=== PATIENT | female | born 1965 | race Caucasian/White ===

== ENCOUNTER 2019-07-07 08:43 | Day surgery (SDC) | payer OTHER ==
[2019-07-05 16:36] LABS: BASOPHILS # (AUTO) 0.1 X10'3 (0-0.2); BASOPHILS % (AUTO) 0.8 % (0-1); EOSINOPHILS # (AUTO) 0.2 X10'3 (0-0.9); EOSINOPHILS % (AUTO) 3.2 % (0-6); LYMPHOCYTES # (AUTO) 2.2 X10'3 (1.1-4.8); LYMPHOCYTES % (AUTO) 30.6 % (21-51); MEAN CORPUSCULAR HEMOGLOBIN 30.7 PG (27.0-31.0); MEAN CORPUSCULAR HGB CONC 33.2 g/dL (33.0-36.5); MEAN CORPUSCULAR VOLUME 92.4 FL (78-98); MEAN PLATELET VOLUME 8.5 FL (7.4-10.4); MONOCYTES # (AUTO) 0.6 X10'3 (0-0.9); MONOCYTES % (AUTO) 8.3 % (2-12); NEUTROPHILS # (AUTO) 4.1 X10'3 (1.8-7.7); NEUTROPHILS % (AUTO) 57.1 % (42-75); PRE OP HEMATOCRIT 39.7 % (35.0-45.0); PRE OP HEMOGLOBIN 13.2 g/dL (12.0-16.0); PRE OP PLATELET COUNT 235 X10'3 (140-440); RED CELL DISTRIBUTION WIDTH 14.4 % (11.5-14.5)
[2019-07-05 16:43] LABS: CLARITY,URINE CLEAR (Clear); COLOR,URINE YELLOW (Yellow); GLUCOSE, URINE NEGATIVE (Neg); KETONES,URINE NEGATIVE (Neg); LEUKOCYTE ESTERASE ,URINE NEGATIVE (Neg); NITRITES, URINE NEGATIVE (Neg); OCCULT BLOOD,URINE MODERATE (Neg); PROTEIN,URINE NEGATIVE (Neg); UROBILINOGEN,URINE 0.2 E.U/dL (0.2-1.0)
[2019-07-05 16:46] LABS: ALBUMIN 3.8 G/DL (3.4-5.0); ALBUMIN/GLOBULIN RATIO 1.1 (1.1-1.5); ALKALINE PHOSPHATASE 113 IU/L (46-116); BLOOD UREA NITROGEN 15 MG/DL (7-18); BUN/CREATININE RATIO 22.4 (6.6-38.0); CALCIUM 10.1 MG/DL (8.5-10.1); CHLORIDE 107 MMOL/L (99-107); CREATININE 0.67 MG/DL (0.40-0.90); PRE OP ALT 16 U/L (30-65); PRE OP ANION GAP 4 (8-16); PRE OP AST 20 U/L (10-37); PRE OP BILIRUB, TOTAL 0.2 MG/DL (0.0-1.0); PRE OP GLUCOSE 88 MG/DL (70-104); PRE OP POTASSIUM 3.7 MMOL/L (3.4-5.1); PRE OP SODIUM 143 MMOL/L (135-145); TOTAL CARBON DIOXIDE 32.3 MMOL/L (24-32); TOTAL PROTEIN 7.3 G/DL (6.4-8.2); eGFR > 90 ML/MIN
[2019-07-05 16:50] LABS: BACTERIA,URINE NONE SEEN /HPF (Neg); SQUAMOUS EPITHELIAL CELL,UR FEW /LPF (FEW); UA COLLECTION TYPE CLN CATCH MIDSTREAM; WBC,URINE NONE SEEN /HPF (0-4)
[~2019-07-07] VITALS: Ht 167.6 cm; Wt 80.0 kg
[2019-07-07] VITALS (11 sets, daily range): BP systolic 112–159; BP diastolic 76–99
[~2019-07-07 08:43] MED LIST: ACET-1025 PO; ATEN50TA PO; DOCUMENT DATE & TIME OF BETA-BLOCKER PO ONE; PARO20TA6 PO; cefazolin/dext.iso 2gm/50ml 50 ML IV ONE; famotidine 20mg tablet PO ONE; ringers solution, lacted 1,000 ML IV SCH
[2019-07-07] MEDS ORDERED: BUPIVAcaine/PF 2.5 mg/ml (0.25%) 30ml vial ONE (13:00)
[2019-07-07] MEDS ORDERED: ceFAZolin 1000mg inj ONE (13:00)
[2019-07-07] MEDS ORDERED: sevoflurane 250ml liquid IH ONE (13:32)
[2019-07-07] MEDS ORDERED: fentaNYL/PF 50MCG/1 ML 2ML syringe ONE (13:40)
[2019-07-07] MEDS ORDERED: midazolam 2 mg/2 ml injection ONE (13:52)
[2019-07-07] MEDS ORDERED: dexamethasone sod phosphate 4mg/ml inj. ONE (14:20)
[2019-07-07] MEDS ORDERED: glycopyrrolate 0.2mg/ml inj ONE (14:20)
[2019-07-07] MEDS ORDERED: neostigmine methylsulfate 1 MG/ML 10ml vial ONE (14:20)
[2019-07-07] MEDS ORDERED: LIDOcaine 2% (20mg/ml) 5ml vial ONE (14:20)
[2019-07-07] MEDS ORDERED: propofol inj 20 ML IV ONE (14:20)
[2019-07-07] MEDS ORDERED: ondansetron/PF 4mg/2ml inj ONE (14:20)
[2019-07-07] MEDS ORDERED: rocuronium 10mg/ml inj IV ONE (14:20)
[2019-07-07] MEDS ORDERED: meperidine/PF 50mg/ml syringe ONE (14:26)
--- NOTE | 2019-07-07 14:33 | NUR ---
Received from OR via [facility], accompanied by Anesthesiologist MAYE and report given by Anesthesiolgist. PATIENT WITH 3 ABDOMINAL DRESSINGS CDI TO ABDOMEN. DENIES PAIN. VSS. 10L MASK ON WITH 100% SATURATIONS. Addendum: 07/07/19 at 1444 by Winston Soliz RN, RN Amended: Links added.
[2019-07-07] MEDS ORDERED: ringers solution, lacted 1,000 ML IV SCH (14:41)
[2019-07-07] MEDS ORDERED: proCHLORperazine 10 MG/2 ml inj IV PRN (14:45)
[2019-07-07] MEDS ORDERED: ondansetron/PF 4mg/2ml inj IV PRN (14:45)
[2019-07-07] MEDS ORDERED: morphine 2 MG/ML inj. syringe IV PRN (14:45)
[2019-07-07] MEDS ORDERED: meperidine/PF 25mg/ml syringe IV PRN ×3 (14:45)
[2019-07-07] MEDS ORDERED: morphine 4 MG/ML inj SYRINge IV PRN (14:45)
--- NOTE | 2019-07-07 16:13 | NUR ---
ALL DC CRITERIA HAS BEEN MET. IV TAKEN OUT WITHOUT COMPLICATIONS. ALL INSTRUCTIONS COVERED AND ALL QUESTIONS ANSWERED. DRESSINGS CDI. OUT VIA WHEELCHAIR TO PERSONAL VEHICLE WHERE PATIENT WAS SECURED IN AND DRIVEN HOME BY FAMILY. SPOUSE PRESENT FOR DC INSTRUCTIONS AND DRESSED PATIENT. ALL DRESSINGS CDI. VSS. PAIN WELL CONTROLLED. Addendum: 07/07/19 at 1615 by Winston Soliz RN, RN Amended: Links added.
== END 2019-07-07 16:13 | disposition home or self-care (01) ==
LOC: PAS 08:43
PROVIDERS: ATTEND Surgery
DX: K41.90 Unilateral femoral hernia, without obstruction or gangrene, not specified as recurrent (principal); F41.9 Anxiety disorder, unspecified; G43.909 Migraine, unspecified, not intractable, without status migrainosus; I10 Essential (primary) hypertension; Z88.2 Allergy status to sulfonamides; Z88.8 Allergy status to other drugs, medicaments and biological substances; Z79.899 Other long term (current) drug therapy
CPT/HCPCS: 36415; 49550; 80053; 81001; 82948; 85025; 93005; C1727; C1781; J0690; J1100; J2001; J2175; J2250; J2270; J2405; J2704; J2710; J3010; J3490; A4215; A4314; A4618; A6258; J7120

== ENCOUNTER 2020-02-24 10:31 | Day surgery (SDC) | payer OTHER ==
[2020-02-17 15:57] LABS: BASOPHILS # (AUTO) 0.1 X10'3 (0-0.2); BASOPHILS % (AUTO) 1.3 % (0-1); EOSINOPHILS # (AUTO) 0.2 X10'3 (0-0.9); EOSINOPHILS % (AUTO) 2.5 % (0-6); LYMPHOCYTES # (AUTO) 1.8 X10'3 (1.1-4.8); LYMPHOCYTES % (AUTO) 29.5 % (21-51); MEAN CORPUSCULAR HEMOGLOBIN 30.4 PG (27.0-31.0); MEAN CORPUSCULAR HGB CONC 32.8 g/dL (33.0-36.5); MEAN CORPUSCULAR VOLUME 92.6 FL (78-98); MEAN PLATELET VOLUME 8.8 FL (7.4-10.4); MONOCYTES # (AUTO) 0.5 X10'3 (0-0.9); MONOCYTES % (AUTO) 8.7 % (2-12); NEUTROPHILS # (AUTO) 3.6 X10'3 (1.8-7.7); PRE OP HEMATOCRIT 40.6 % (35.0-45.0); PRE OP HEMOGLOBIN 13.3 g/dL (12.0-16.0); PRE OP PLATELET COUNT 232 X10'3 (140-440); RED BLOOD COUNT 4.39 X10'6 (4.20-5.60); RED CELL DISTRIBUTION WIDTH 14.2 % (11.5-14.5)
[2020-02-17 16:00] LABS: CLARITY,URINE CLEAR (Clear); COLOR,URINE YELLOW (Yellow); GLUCOSE, URINE NEGATIVE (Neg); KETONES,URINE NEGATIVE (Neg); LEUKOCYTE ESTERASE ,URINE SMALL (Neg); NITRITES, URINE NEGATIVE (Neg); OCCULT BLOOD,URINE MODERATE (Neg); PH,URINE 7.5 (4.8-8.0); PROTEIN,URINE NEGATIVE (Neg); UROBILINOGEN,URINE 0.2 E.U/dL (0.2-1.0)
[2020-02-17 16:08] LABS: UA COLLECTION TYPE CLN CATCH MIDSTREAM
[2020-02-17 16:08] LABS: ALBUMIN 3.7 G/DL (3.4-5.0); ALBUMIN/GLOBULIN RATIO 1.1 (1.1-1.5); ALKALINE PHOSPHATASE 119 IU/L (46-116); BLOOD UREA NITROGEN 14 MG/DL (7-18); BUN/CREATININE RATIO 18.7 (6.6-38.0); CALCIUM 10.5 MG/DL (8.5-10.1); CHLORIDE 108 MMOL/L (99-107); CREATININE 0.75 MG/DL (0.40-0.90); PRE OP ALT 21 U/L (30-65); PRE OP ANION GAP 0 (8-16); PRE OP AST 15 U/L (10-37); PRE OP BILIRUB, TOTAL 0.4 MG/DL (0.0-1.0); PRE OP GLUCOSE 88 MG/DL (70-104); PRE OP POTASSIUM 4.3 MMOL/L (3.4-5.1); PRE OP SODIUM 138 MMOL/L (135-145); TOTAL CARBON DIOXIDE 29.9 MMOL/L (24-32); TOTAL PROTEIN 7.1 G/DL (6.4-8.2); eGFR 80 ML/MIN
[2020-02-17 16:12] LABS: BACTERIA,URINE FEW /HPF (Neg); SQUAMOUS EPITHELIAL CELL,UR FEW /LPF (FEW); WBC,URINE 0-4 /HPF (0-4)
[~2020-02-24] VITALS: Ht 167.6 cm; Wt 81.3 kg
[~2020-02-24 10:31] MED LIST changes: -ACET-1025 PO; +ceFOXitin sod/dextrose 2g/50ml 50 ML IV ONE; -cefazolin/dext.iso 2gm/50ml 50 ML IV ONE; +famotidine 10mg tablet PO ONE; -famotidine 20mg tablet PO ONE
[2020-02-24 11:12] VITALS: BP 139/90
[2020-02-24 11:45] LABS: HCG SERUM QL NEGATIVE
[2020-02-24] MEDS ORDERED: BUPIVAcaine/PF 2.5 mg/ml (0.25%) 30ml vial ONE (13:10)
[2020-02-24] MEDS ORDERED: BUPIVAcaine 0.25% w/Epi /PF 30ml vial ONE (13:10)
[2020-02-24] MEDS ORDERED: midazolam 2 mg/2 ml injection ONE (13:43)
[2020-02-24] MEDS ORDERED: fentaNYL/PF 50MCG/1 ML 2ML syringe ONE (13:43)
[2020-02-24] MEDS ORDERED: propofol inj 20 ML IV ONE (13:44)
[2020-02-24] MEDS ORDERED: LIDOcaine 2% (20mg/ml) 5ml vial ONE (13:45)
[2020-02-24] MEDS ORDERED: ondansetron/PF 4mg/2ml inj ONE (13:53)
[2020-02-24] MEDS ORDERED: rocuronium 10mg/ml inj IV ONE (13:53)
[2020-02-24] MEDS ORDERED: meperidine/PF 25mg/ml syringe ONE (14:52)
[2020-02-24] MEDS ORDERED: ringers solution, lacted 1,000 ML IV SCH (15:10)
[2020-02-24] MEDS ORDERED: ondansetron/PF 4mg/2ml inj IV PRN (15:10)
[2020-02-24] MEDS ORDERED: meperidine/PF 25mg/ml syringe IV PRN ×3 (15:10)
[2020-02-24] MEDS ORDERED: morphine 4 MG/ML inj SYRINge IV PRN (15:10)
[2020-02-24] MEDS ORDERED: morphine 2 MG/ML inj. syringe IV PRN (15:10)
[2020-02-24] MEDS ORDERED: proCHLORperazine 10 MG/2 ml inj IV PRN (15:10)
[2020-02-24] MEDS ORDERED: acetaminophen 1,000mg/100ml IV 100 ML IV ONE (15:39)
[2020-02-24 15:53] VITALS: BP 118/60
--- NOTE | 2020-02-24 15:53 | NUR ---
Received from OR via cayla, accompanied by Anesthesiologist Trip and report given by Anesthesiolgist. VS stable, lap sites x3 open to air CDI, 20G right AC LR 100cc/hr. Mask to 10L sats 99%. Surgeon states he would prefer she voids prior to leaving.
[2020-02-24 16:00] VITALS: BP 116/74
[2020-02-24 16:10] VITALS: BP 109/71
[2020-02-24 16:20] VITALS: BP 113/69
[2020-02-24 16:30] VITALS: BP 110/70
== END 2020-02-24 16:53 | disposition home or self-care (01) ==
LOC: PAS 10:31
PROVIDERS: ATTEND Obstetrics & Gynecology Obstetrics
DX: N83.8 Other noninflammatory disorders of ovary, fallopian tube and broad ligament (principal); D27.1 Benign neoplasm of left ovary; D27.0 Benign neoplasm of right ovary; I10 Essential (primary) hypertension; F41.9 Anxiety disorder, unspecified; F32.9 Major depressive disorder, single episode, unspecified; G43.909 Migraine, unspecified, not intractable, without status migrainosus; E66.9 Obesity, unspecified; Z68.29 Body mass index [BMI] 29.0-29.9, adult; Z87.440 Personal history of urinary (tract) infections; Z88.2 Allergy status to sulfonamides; Z88.8 Allergy status to other drugs, medicaments and biological substances; Z79.899 Other long term (current) drug therapy; Z98.890 Other specified postprocedural states; Z82.49 Family history of ischemic heart disease and other diseases of the circulatory system; Z80.1 Family history of malignant neoplasm of trachea, bronchus and lung; Z20.828 Contact with and (suspected) exposure to other viral communicable diseases
CPT/HCPCS: 36415; 58661; 71046; 80053; 81001; 82948; 84703; 85025; 86885; 86900; 86901; 87088; 87635; 93005; J0131; J0694; J2001; J2175; J2250; J2405; J2704; J3010; J3490; J7120; A4618; A7000